=== PATIENT | female | born 1970 | race Caucasian/White ===

== ENCOUNTER 2021-07-29 18:08 | Emergency (ER) | payer OTHER ==
[2021-07-29 18:31] VITALS: BMI 35.4
[2021-07-29] MEDS ORDERED: KETOROLAC TROMETHAMINE 30 MG/1 ML VIAL ONE (19:20)
[2021-07-29] MEDS ORDERED: ACETAMINOPHEN 500 MG TABLET (FP) ONE (19:21)
[2021-07-29] MEDS ORDERED: SODIUM CHLORIDE 1,000 ML IV STA (19:29)
[2021-07-29] MEDS ORDERED: KETOROLAC TROMETHAMINE 30 MG/1 ML VIAL IVPUSH ONE (19:30)
[2021-07-29] MEDS ORDERED: ACETAMINOPHEN 500 MG TABLET (FP) PO ONE (19:30)
[2021-07-29] MEDS ORDERED: BEBTELOVIMAB (EUA) 175 MG/2 ML VIAL IVPUSH ONE (19:31)
[2021-07-29 19:36] LABS: BASO % 0.1 % (0-2.0); EOS % 1.5 % (0-4.5); HEMATOCRIT 41.3 % (32.4-45.2); HEMOGLOBIN 13.7 GM/dL (10.7-15.3); LYMPH % 3.7 % (8-40); MCH 28.8 pg (25.7-33.7); MCHC 33.1 g/dl (32.0-36.0); MEAN CELL VOLUME 86.9 fl (80-96); MEAN PLT VOLUME 8.2 fl (7.5-11.1); MONO % 5.8 % (3.8-10.2); NEUT % 88.9 % (42.8-82.8); PLATELET COUNT 328 10^3/uL (134-434); RBC 4.75 M/mm3 (3.60-5.2); RDW 14.2 % (11.6-15.6); WHITE BLOOD COUNT 9.2 K/mm3 (4.0-10.0)
[2021-07-29 19:46] LABS: INR 1.09 (0.83-1.09); PROTHROMBIN TIME (PATIENT) 12.6 SEC (9.7-13.0)
[2021-07-29 20:10] LABS: ALBUMIN 3.6 g/dl (3.4-5.0); BLOOD UREA NITROGEN 9.6 mg/dL (7-18); CALCIUM 9.5 mg/dL (8.5-10.1)
[2021-07-29 20:13] LABS: CREATININE 0.8 mg/dL (0.55-1.3)
[2021-07-29 20:15] LABS: BILIRUBIN,TOTAL 0.3 mg/dL (0.2-1); TOT PROT 7.7 g/dl (6.4-8.2)
[2021-07-29 20:55] VITALS: BP 105/59; PULSE 79; TEMP 99.9
== END 2021-07-29 21:19 | disposition home or self-care (01) ==
LOC: JER 18:08
PROC: 3E0333Z Introduction of Anti-inflammatory into Peripheral Vein, Percutaneous Approach (ICD-10-PCS; principal; 2021-07-29)
PROC: 3E03329 Introduction of Other Anti-infective into Peripheral Vein, Percutaneous Approach (ICD-10-PCS; 2021-07-29)
PROC: 3E0337Z Introduction of Electrolytic and Water Balance Substance into Peripheral Vein, Percutaneous Approach (ICD-10-PCS; 2021-07-29)
DX: U07.1 COVID-19 (principal)
CPT/HCPCS: 36415; 71046-TC-FY; 80053; 84484; 85025; 85610; 93005; 93010; 99285-25; Q0222

== ENCOUNTER 2021-10-18 09:45 | Emergency (ER) | payer OTHER ==
[2021-10-18 09:55] VITALS: BP 118/85; PULSE 89; RESP 18; TEMP 97; BMI 35.4
== END 2021-10-18 10:45 | disposition home or self-care (01) ==
LOC: JERFT 09:45
DX: S92.901A Unspecified fracture of right foot, initial encounter for closed fracture (principal); W01.0XXA Fall on same level from slipping, tripping and stumbling without subsequent striking against object, initial encounter
CPT/HCPCS: 73630-TC-RT-FY; 99283-25